=== PATIENT | male | born 1985 | race Caucasian/White ===

== ENCOUNTER 2020-09-03 08:56 | Observation (INO) ==
[2020-09-03] MEDS ORDERED: ONDANSETRON INJ 2 MG/ML 2 ML VIAL IV STA (09:32)
[2020-09-03] MEDS ORDERED: SODIUM CHLORIDE 0.9% 1000ML 1,000 ML IV STA (09:32)
[2020-09-03] MEDS ORDERED: MoRPHine SULFATE 4 MG/ML 1 ML CARP\\VIAL IV STA ×2 (09:32→12:12)
--- NOTE | 2020-09-03 09:39 | Emergency Department Note ---
History of Present Illness General Chief complaint: Abdominal Pain Stated complaint: UPPER ABD PAIN,COVID + ON 08/31 Time Seen by Provider: 09/03/20 09:12 History of Present Illness Maximum Pain Intensity: 7 35-year-old male who presents to the emergency department for evaluation of severe upper abdominal pain that started yesterday, and has progressively worsened. The patient reports that the pain comes in waves. He denies any pain extending into the chest or back. He denies shortness of breath or worsening pain with ambulation or deep breathing. The patient reports that he did test positive for COVID-19 on Monday. The patient did have some mild sinus congestion prior to testing, and reports that his son and also had similar symptoms, prompting COVID-19 testing. The patient reports a mild nonproductive cough. He denies any loss of taste/smell, myalgias, fevers or chills. He has had a mild sinus congestion and sore throat as well. The patient denies any prior history of GI conditions. The patient does not drink alcohol, and denies prior history of pancreatitis, hepatitis or gallbladder issues. He has not noticed any change in color or consistency of stools, and also denies any urinary symptoms. The patient rates his discomfort a 7 out of 10. Home Medications Medication Instructions Recorded Confirmed Type No Known Home Medications 09/03/20 09/03/20 History Allergies Allergy/AdvReac Type Severity Reaction Status Date / Time No Known Allergies Allergy Unverified 09/03/20 10:14 Past Med/Surg History Medical History No significant past medical history Surgical History No significant past surgical history Social History Smoking Status: Never smoker Preferred Language: Lao marital status: Current Living Situation: Spouse and Family current occupational status: employed Feels Safe at Home: Yes Review of Systems 10 system review was performed and was negative except for pertinent positives and negatives as indicated in history of present illness Physical Exam Vital Signs Vital Signs - 24 hr 09/03/20 09:01 09/03/20 11:15 09/03/20 13:15 Temperature 37.1 C Temperature Source Temporal Artery Scan Pulse Rate 90 Pulse Rate [Left Finger] 88 85 Pulse Rate from SpO2 Sensor Pulse Rhythm [Left Finger] Regular Regular Pulse Strength [Left Finger] Normal Normal Respiratory Rate 18 20 20 Respiratory Effort / Characteristics Non-Labored Spontaneous Non-Labored Non-Labored Respiratory Depth Normal Normal Normal Respiratory Pattern Regular Regular Regular Blood Pressure 136/90 Blood Pressure [Left Arm] 130/85 132/87 Blood Pressure Mean 105 Blood Pressure Mean [Left Arm] 100 102 Blood Pressure Position Sitting Blood Pressure Position [Left Arm] Sitting Pulse Oximetry 95 98 98 Oxygen Delivery Method Room Air Room Air Room Air Sepsis Recent Fever Within 48 Hours No Sepsis New/Unexplained Change in Mental Status N/A Sepsis Action Taken by Nursing No Action Required 09/03/20 14:28 09/03/20 15:00 09/03/20 16:56 Temperature Temperature Source Pulse Rate 84 85 97 H Pulse Rate [Left Finger] Pulse Rate from SpO2 Sensor 84 83 94 H Pulse Rhythm [Left Finger] Pulse Strength [Left Finger] Respiratory Rate 19 17 14 Respiratory Effort / Characteristics Respiratory Depth Respiratory Pattern Blood Pressure 117/80 130/77 Blood Pressure [Left Arm] Blood Pressure Mean 92 94 Blood Pressure Mean [Left Arm] Blood Pressure Position Blood Pressure Position [Left Arm] Pulse Oximetry 95 95 95 Oxygen Delivery Method Sepsis Recent Fever Within 48 Hours Sepsis New/Unexplained Change in Mental Status Sepsis Action Taken by Nursing 09/03/20 17:00 Temperature Temperature Source Pulse Rate 94 H Pulse Rate [Left Finger] Pulse Rate from SpO2 Sensor 94 H Pulse Rhythm [Left Finger] Pulse Strength [Left Finger] Respiratory Rate 21 Respiratory Effort / Characteristics Respiratory Depth Respiratory Pattern Blood Pressure 136/75 Blood Pressure [Left Arm] Blood Pressure Mean 95 Blood Pressure Mean [Left Arm] Blood Pressure Position Blood Pressure Position [Left Arm] Pulse Oximetry 96 Oxygen Delivery Method Sepsis Recent Fever Within 48 Hours Sepsis New/Unexplained Change in Mental Status Sepsis Action Taken by Nursing CONSTITUTIONAL: Healthy and well nourished. Patient appears in moderate disco mfort from pain. He does not appear toxic. HEENT: Normocephalic, atraumatic. Pupils equal, round and reactive. Ears and nares are clear without rhinorrhea, subconjunctival hemorrhage, scleral icterus or conjunctival injection/pallor. Patient has minimal posterior pharyngeal erythema without tonsillar hypertrophy or exudates. NECK: Full active range of motion without discomfort. No nuchal rigidity, JVD or carotid bruits. LYMPHATICS: No cervical chain adenopathy. RESPIRATORY: Clear to auscultation bilaterally with no wheezing, crackles, rhonchi or stridor. Deep breathing does not worsen discomfort in the abdomen. CARDIOVASCULAR: Regular rate and rhythm with no murmurs, rubs or gallops. GASTROINTESTINAL: Bowel sounds present in all quadrants. Patient has notable epigastric and left upper quadrant tenderness to palpation. No obvious hepatosplenomegaly. Negative CVA tenderness. No abdominal rigidity, guarding or rebound. MUSCULOSKELETAL: Full range of motion of all joints without discomfort. INTEGUMENTARY: No rash or other significant dermatologic conditions noted. HEMATOLOGIC: No ecchymosis or petechiae. PSYCHIATRIC: Positive affect. NEUROLOGIC: No focal neurologic deficits noted. Course Course Patient history and physical exam were performed. Nurses notes were reviewed. Vital signs were reviewed and were grossly normal. IV access was established, and labs were drawn. The patient was hydrated with a liter normal saline, and administered IV morphine and Zofran for pain. Review of labs does not show any significant abnormalities except for a mild leukopenia without thrombocytopenia, left shift or bandemia. Coagulation studies, CMP and lipase were otherwise unremarkable. Urinalysis also is not consistent with infection. CT with IV contrast of the abdomen and pelvis is concerning for possible splenic peripheral cyst versus possibility of infarcted tissue. At this point, I did elect to order a serum lactate which came back normal. Findings were further discussed with Dr. Ordonez, ED attending physician, who recommended discussing the case further with the [facility] Hospitalist service. I did ask about possibly contacting the general surgeon, however he does not feel that this is a surgical condition. The case was then further discussed with the [facility] hospitalist service, who evaluated the patient and agrees with hospital observation. The patient did require 2 additional doses of IV morphine for persistent pain. Please see the hospitalist dictations for further treatment and final disposition. Administered Medications Acetaminophen (Acetaminophen 325 Mg Tab) 650 mg PO Q6H PRN PRN Reason: Pain or Fever Stop: 10/03/20 15:58 Last Admin: 09/03/20 17:07 Dose: 650 mg Documented by: [id number] Discontinued Medications Sodium Chloride (Nss 1000ml) 1,000 mls @ 999 mls/hr IV .Q1H1M STA Stop: 09/03/20 10:32 Last Infusion: 09/03/20 10:56 Dose: 0 mls/hr Documented by: [id number] Admin: 09/03/20 09:55 Dose: 999 mls/hr Documented by: [id number] Ioversol (Optiray 300 100ml) 89 ml IV ONCE ONE Stop: 09/03/20 10:40 Last Admin: 09/03/20 10:40 Dose: 89 ml Documented by: [id number] Morphine Sulfate (Morphine Sulfate 4 Mg/Ml 1 Ml Carp\Vial) 4 mg IV NOW STA Stop: 09/03/20 09:33 Last Admin: 09/03/20 09:55 Dose: 4 mg Documented by: [id number] Morphine Sulfate (Morphine Sulfate 4 Mg/Ml 1 Ml Carp\Vial) 4 mg IV NOW STA Stop: 09/03/20 12:13 Last Admin: 09/03/20 12:15 Dose: 4 mg Documented by: [id number] Morphine Sulfate (Morphine Sulfate 4 Mg/Ml 1 Ml Carp\Vial) Confirm Administered Dose 4 mg .ROUTE .STK-MED ONE Stop: 09/03/20 12:13 Last Admin: 09/03/20 12:15 Dose: Not Given Documented by: [id number] Ondansetron HCl (Ondansetron Inj 2 Mg/Ml 2 Ml Vial) 4 mg IV NOW STA Stop: 09/03/20 09:33 Last Admin: 09/03/20 09:55 Dose: 4 mg Documented by: [id number] Medical Decision Making Medical Records Attestation: I reviewed the patient's medical records. Home Medications Current Medication List: was personally reviewed by me Laboratory Data Attestation: I reviewed the patient's lab results. Result diagrams: 09/03/20 09:32 09/03/20 09:32 Lab Results 09/03/20 09/03/20 09/03/20 Range/Units 09:32 09:32 09:32 WBC 4.76 L (4.8-10.8) K/uL RBC 5.74 (4.7-6.1) M/uL Hgb 16.7 (14.0-18.0) g/dL Hct 48.2 (42-52) % MCV 84.0 (80-100) fL MCH 29.1 (25-34) pg MCHC 34.6 (32-36) g/dL RDW Std Deviation 40.8 (36.4-46.3) fL RDW Coeff of Danisha 13.3 (11.5-14.5) % Plt Count 216 (130-400) K/uL MPV 11.5 H (7.4-10.4) fL Immature Gran % (Auto) 0.2 % Neut % (Auto) 68.2 % Lymph % (Auto) 20.4 % Garrard % (Auto) 9.5 % Eos % (Auto) 1.5 % Baso % (Auto) 0.2 % Neut # (Auto) 3.25 (1.4-6.5) K/uL Lymph # (Auto) 0.97 L (1.2-3.4) K/uL Garrard # (Auto) 0.45 (0.11-0.59) K/uL Eos # (Auto) 0.07 (0-0.5) K/uL Baso # (Auto) 0.01 (0-0.2) K/uL Immature Gran # (Auto) 0.01 (0.00-0.02) K/uL PT 10.7 (9.0-12.0) Seconds INR 1.1 (0.9-1.1) APTT 26.9 (21.0-31.0) Seconds PTT Ratio 1.0 Sodium 140 (136-145) mmol/L Potassium 4.1 (3.5-5.1) mmol/L Chloride 109 H (98-107) mmol/L Carbon Dioxide 28 (21-32) mmol/L Anion Gap 3.0 (3-11) BUN 11 (7-18) mg/dl Creatinine 0.95 (0.6-1.4) mg/dl Est Cr Clr Drug Dosing 122.9 ml/min Est GFR ( Amer) 120.6 Est GFR (Non-Af Amer) 104.0 BUN/Creatinine Ratio 11.6 (10-20) Glucose 96 (70-99) mg/dl Lactate (0.4-2.0) mmol/L Calcium 9.5 (8.5-10.1) mg/dl Total Bilirubin 0.4 (0.2-1) mg/dl AST 18 (15-37) U/L ALT 42 (12-78) U/L Alkaline Phosphatase 82 (45-117) U/L Total Protein 7.5 (6.4-8.2) gm/dl Albumin 3.9 (3.4-5.0) gm/dl Globulin 3.6 (2.5-4.0) gm/dl Albumin/Globulin Ratio 1.1 (0.9-2) Lipase 298 (73-393) U/L Urine Color Urine Appearance (Clear) Urine pH (4.5-7.5) Ur Specific [place] (1.000-1.030) Urine Protein (Negative) Urine Glucose (UA) (Negative) Urine Ketones (Negative) Urine Blood (Negative) Urine Nitrite (Negative) Urine Bilirubin (Negative) Urine Urobilinogen (Negative) Ur Leukocyte Esterase (Negative) COVID-19 Eval Order SARS-CoV-2 (PCR) (Negative) Influenza Type A (PCR) (Neg) Influenza Type B (PCR) (Neg) RSV (RT-PCR) (Neg) 09/03/20 09/03/20 09/03/20 Range/Units 11:16 12:16 14:30 WBC (4.8-10.8) K/uL RBC (4.7-6.1) M/uL Hgb (14.0-18.0) g/dL Hct (42-52) % MCV (80-100) fL MCH (25-34) pg MCHC (32-36) g/dL RDW Std Deviation (36.4-46.3) fL RDW Coeff of Danisha (11.5-14.5) % Plt Count (130-400) K/uL MPV (7.4-10.4) fL Immature Gran % (Auto) % Neut % (Auto) % Lymph % (Auto) % Garrard % (Auto) % Eos % (Auto) % Baso % (Auto) % Neut # (Auto) (1.4-6.5) K/uL Lymph # (Auto) (1.2-3.4) K/uL Garrard # (Auto) (0.11-0.59) K/uL Eos # (Auto) (0-0.5) K/uL Baso # (Auto) (0-0.2) K/uL Immature Gran # (Auto) (0.00-0.02) K/uL PT (9.0-12.0) Seconds INR (0.9-1.1) APTT (21.0-31.0) Seconds PTT Ratio Sodium (136-145) mmol/L Potassium (3.5-5.1) mmol/L Chloride (98-107) mmol/L Carbon Dioxide (21-32) mmol/L Anion Gap (3-11) BUN (7-18) mg/dl Creatinine (0.6-1.4) mg/dl Est Cr Clr Drug Dosing ml/min Est GFR ( Amer) Est GFR (Non-Af Amer) BUN/Creatinine Ratio (10-20) Glucose (70-99) mg/dl Lactate 0.7 (0.4-2.0) mmol/L Calcium (8.5-10.1) mg/dl Total Bilirubin (0.2-1) mg/dl AST (15-37) U/L ALT (12-78) U/L Alkaline Phosphatase (45-117) U/L Total Protein (6.4-8.2) gm/dl Albumin (3.4-5.0) gm/dl Globulin (2.5-4.0) gm/dl Albumin/Globulin Ratio (0.9-2) Lipase (73-393) U/L Urine Color Yellow Urine Appearance Clear (Clear) Urine pH 5.0 (4.5-7.5) Ur Specific [place] > 1.045 H (1.000-1.030) Urine Protein Negative (Negative) Urine Glucose (UA) Negative (Negative) Urine Ketones Negative (Negative) Urine Blood Negative (Negative) Urine Nitrite Negative (Negative) Urine Bilirubin Negative (Negative) Urine Urobilinogen Negative (Negative) Ur Leukocyte Esterase Negative (Negative) COVID-19 Eval Order [facility]FluRsv at [facility] SARS-CoV-2 (PCR) (Negative) Influenza Type A (PCR) (Neg) Influenza Type B (PCR) (Neg) RSV (RT-PCR) (Neg) 09/03/20 Range/Units 14:30 WBC (4.8-10.8) K/uL RBC (4.7-6.1) M/uL Hgb (14.0-18.0) g/dL Hct (42-52) % MCV (80-100) fL MCH (25-34) pg MCHC (32-36) g/dL RDW Std Deviation (36.4-46.3) fL RDW Coeff of Danisha (11.5-14.5) % Plt Count (130-400) K/uL MPV (7.4-10.4) fL Immature Gran % (Auto) % Neut % (Auto) % Lymph % (Auto) % Garrard % (Auto) % Eos % (Auto) % Baso % (Auto) % Neut # (Auto) (1.4-6.5) K/uL Lymph # (Auto) (1.2-3.4) K/uL Garrard # (Auto) (0.11-0.59) K/uL Eos # (Auto) (0-0.5) K/uL Baso # (Auto) (0-0.2) K/uL Immature Gran # (Auto) (0.00-0.02) K/uL PT (9.0-12.0) Seconds INR (0.9-1.1) APTT (21.0-31.0) Seconds PTT Ratio Sodium (136-145) mmol/L Potassium (3.5-5.1) mmol/L Chloride (98-107) mmol/L Carbon Dioxide (21-32) mmol/L Anion Gap (3-11) BUN (7-18) mg/dl Creatinine (0.6-1.4) mg/dl Est Cr Clr Drug Dosing ml/min Est GFR ( Amer) Est GFR (Non-Af Amer) BUN/Creatinine Ratio (10-20) Glucose (70-99) mg/dl Lactate (0.4-2.0) mmol/L Calcium (8.5-10.1) mg/dl Total Bilirubin (0.2-1) mg/dl AST (15-37) U/L ALT (12-78) U/L Alkaline Phosphatase (45-117) U/L Total Protein (6.4-8.2) gm/dl Albumin (3.4-5.0) gm/dl Globulin (2.5-4.0) gm/dl Albumin/Globulin Ratio (0.9-2) Lipase (73-393) U/L Urine Color Urine Appearance (Clear) Urine pH (4.5-7.5) Ur Specific [place] (1.000-1.030) Urine Protein (Negative) Urine Glucose (UA) (Negative) Urine Ketones (Negative) Urine Blood (Negative) Urine Nitrite (Negative) Urine Bilirubin (Negative) Urine Urobilinogen (Negative) Ur Leukocyte Esterase (Negative) COVID-19 Eval Order SARS-CoV-2 (PCR) POSITIVE A* (Negative) Influenza Type A (PCR) Negative (Neg) Influenza Type B (PCR) Negative (Neg) RSV (RT-PCR) Negative (Neg) Imaging Data Attestation: I personally reviewed and interpreted this imaging study as follows: My Impression: My interpretation of a CT with IV contrast of the abdomen and pelvis does not show any evidence for obstruction, diverticulitis, appendicitis or abdominal free air. Radiologist does make mention of peripheral hypodense foci within the spleen, representing possible small exophytic cysts, and with less likelihood, possible small peripheral infarcts. Radiologist report was also reviewed. Radiologist's Impression: Abdomen/Pelvis CT 09/03/20 09:[address] WITH IV CONTRAST CT DOSE: 718.05 mGycm HISTORY: Epigastric/left upper quadrant abd pain, COVID-19 TECHNIQUE: Multiaxial CT images of the abdomen and pelvis were performed following the use of intravenous contrast. A dose lowering technique was utilized adhering to the principles of ALARA. COMPARISON STUDY: None. FINDINGS: Mild dependent changes seen within the lung bases posteriorly. No focal lung consolidations to suggest pneumonia. No pneumoperitoneum. No pneumatosis. No fractures within the visualized osseous structures. The liver, gallbladder, pancreas, adrenal glands, and kidneys are unremarkable. No hydr onephrosis. Normal caliber abdominal aorta. The main portal vein is patent. No retroperitoneal lymphadenopathy. Small peripheral hypodense foci are seen within the spleen. These appear to represent small exophytic cysts. Dominant lesion within the spleen on image 87 measures 9 mm. Small peripheral infarcts are considered less likely but would also be considered in the differential diagnosis. The splenic vein and artery are patent. Normal bladder. No pelvic free fluid. No bowel wall thickening or obstruction. Normal appendix. IMPRESSION: 1. No bowel wall thickening or obstruction. 2. Normal appendix. 3. No hydronephrosis. 4. Small peripheral hypodense foci are seen within the spleen. These appear to represent small exophytic cysts. Dominant lesion measures 9 mm. Small peripheral infarcts are considered less likely but would also be considered in the differential diagnosis. ACT 112: Negative or not required by law. Electronically signed by: Billy Resendiz M.D. 09/03/2020 11:00 AM Chest X-Ray 04/29/21 14:25 XR chest 1V portable CLINICAL HISTORY: Shortness of breath. COMPARISON STUDY: No previous studies for comparison. FINDINGS: Lung volumes are normal. Lungs are clear. There is no pneumothorax or pleural effusion. Cardiac size is normal. Mediastinal contours are normal. There is no evidence for pulmonary edema. IMPRESSION: No acute cardiopulmonary findings. ACT 112: Negative or not required by law. Electronically signed by: Tomy Cooley M.D. 09/03/2020 2:50 PM Blood Pressure Blood Pressure Findings: Normal blood pressure MDM Narrative Patient presents emergency department with complaint of severe upper abdominal pain that comes in waves. Work-up today is concerning for possible splenic infarct versus small exophytic cyst. The patient did recently test positive on 08/31/2020 for COVID-19 infection. It is unknown of the clinical significance of his current infection and CT findings. Gastroenterology service may need to be involved with this case as well for further work-up. At this point, I do not suspect surgical services will be needed unless the patient's condition further declines, or has other worsening findings on further imaging. Other differentials considered included acute gastritis, peptic ulcer disease, GERD, bowel spasm or dysmotility. CT imaging does not show evidence for bowel obstruction, diverticulitis, appendicitis, abdominal free air, pancreatitis, hepatitis or obvious obstructive uropathy. Impression & Plan Acute upper abdominal pain, SARS-CoV-2 positive Discharge Plan Visit Data Chief Complaint: Abdominal Pain Stated Complaint: UPPER ABD PAIN,COVID + ON 08/31 ED Provider: Farzad Ordonez ED Midlevel Provider: Juan Diego Leigh Discharge Problem: Acute upper abdominal pain, SARS-CoV-2 positive Patient Disposition: Admitted As Inpatient Discharge Instructions Interventions: ED Discharge Assessment Last Done: 09/03/20 17:21 Forms Stand Alone Forms: [employer] Prescriptions Prescriptions: No Action No Known Home Medications RF: 0 Referrals Referrals: PCP,NO [Primary Care Provider] -
[2020-09-03 10:09] LABS: Basophils # (auto) 0.01 K/uL (0-0.2); Basophils % (auto) 0.2 %; Eosinophils # (auto) 0.07 K/uL (0-0.5); Eosinophils % (auto) 1.5 %; Hematocrit (blood only) 48.2 % (42-52); Hemoglobin 16.7 g/dL (14.0-18.0); Immature Granulocytes # (auto) 0.01 K/uL (0.00-0.02); Immature Granulocytes % (auto) 0.2 %; Lymphocytes # (auto) 0.97 K/uL (1.2-3.4); Lymphocytes % (auto) 20.4 %; Mean Corpuscular Hemoglobin 29.1 pg (25-34); Mean Corpuscular Hgb Conc 34.6 g/dL (32-36); Mean Platelet Volume 11.5 fL (7.4-10.4); Monocytes # (auto) 0.45 K/uL (0.11-0.59); Monocytes % (auto) 9.5 %; Neutrophils # (auto) 3.25 K/uL (1.4-6.5); Neutrophils % (auto) 68.2 %; Platelet Count 216 K/uL (130-400); RDW Coefficient of Variation 13.3 % (11.5-14.5); RDW Standard Deviation 40.8 fL (36.4-46.3); Red Blood Count 5.74 M/uL (4.7-6.1); White Blood Count 4.76 K/uL (4.8-10.8)
[2020-09-03 10:29] LABS: Albumin Level 3.9 gm/dl (3.4-5.0); BUN Creatinine Ratio 11.6 (10-20); Calcium 9.5 mg/dl (8.5-10.1); Creatinine Clr Calc Pharmacy 122.9 ml/min; Est GFR (African American) 120.6; Potassium 4.1 mmol/L (3.5-5.1)
[2020-09-03 10:32] LABS: Albumin Globulin Ratio 1.1 (0.9-2); Bilirubin,Total 0.4 mg/dl (0.2-1); Globulin 3.6 gm/dl (2.5-4.0); Total Protein 7.5 gm/dl (6.4-8.2)
[2020-09-03] MEDS ORDERED: OPTIRAY 300 100mL IV ONE (10:39)
--- NOTE | 2020-09-03 11:02 | CT Scan Report ---
ABDOMEN AND PELVIS CT WITH IV CONTRAST CT DOSE: 718.05 mGycm HISTORY: Epigastric/left upper quadrant abd pain, COVID-19 TECHNIQUE: Multiaxial CT images of the abdomen and pelvis were performed following the use of intrave nous contrast. A dose lowering technique was utilized adhering to the principles of ALARA. COMPARISON STUDY: None. FINDINGS: Mild dependent changes seen within the lung bases posteriorly. No focal lung consolidations to suggest pneumonia. No pneumoperitoneum. No pneumatosis. No fractures within the visualized osseou s structures. The liver, gallbladder, pancreas, adrenal glands, and kidneys are unremarkable. No hydr onephrosis. Normal caliber abdominal aorta. The main portal vein is patent. No retroperitoneal lympha denopathy. Small peripheral hypodense foci are seen within the spleen. These appear to represent smal l exophytic cysts. Dominant lesion within the spleen on image 87 measures 9 mm. Small peripheral infa rcts are considered less likely but would also be considered in the differential diagnosis. The splen ic vein and artery are patent. Normal bladder. No pelvic free fluid. No bowel wall thickening or obst ruction. Normal appendix. IMPRESSION: 1. No bowel wall thickening or obstruction. 2. Normal appendix. 3. No hydronephrosis. 4. Small peripheral hypodense foci are seen within the spleen. These appear to represent small exophy tic cysts. Dominant lesion measures 9 mm. Small peripheral infarcts are considered less likely but wo uld also be considered in the differential diagnosis. ACT 112: Negative or not required by law. Electronically signed by: Billy Resendiz M.D. 09/03/2020 11:00 AM
[2020-09-03 11:26] LABS: Appearance Urine Clear (Clear); Bilirubin Urine Negative (Negative); Blood Urine Negative (Negative); Color Urine Yellow; Glucose Urine UA Negative (Negative); Ketones Urine Negative (Negative); Leukocyte Esterase Urine Negative (Negative); Nitrite Urine Negative (Negative); Protein Urine Negative (Negative); Specific Gravity Urine > 1.045 (1.000-1.030); Urobilinogen Urine Negative (Negative)
[2020-09-03] MEDS ORDERED: MoRPHine SULFATE 4 MG/ML 1 ML CARP\\VIAL ONE (12:12)
[2020-09-03 14:05] LABS: INR 1.1 (0.9-1.1); Partial Thromboplastin Time 26.9 Seconds (21.0-31.0); Prothrombin Time 10.7 Seconds (9.0-12.0)
--- NOTE | 2020-09-03 14:51 | XRay Report ---
XR chest 1V portable CLINICAL HISTORY: Shortness of breath. COMPARISON STUDY: No previous studies for comparison. FINDINGS: Lung volumes are normal. Lungs are clear. There is no pneumothorax or pleural effusion. Car diac size is normal. Mediastinal contours are normal. There is no evidence for pulmonary edema. IMPRESSION: No acute cardiopulmonary findings. ACT 112: Negative or not required by law. Electronically signed by: Tomy Cooley M.D. 09/03/2020 2:50 PM
--- NOTE | 2020-09-03 14:55 | History & Physical Report ---
Date of Service September 03, 2020 Assessment & Plan (1) Abdominal pain: Mr. Quinn is a 35 year old male without chronic medical conditions who presented to [facility] ER today complaining of severe upper abdominal pain which started yesterday, and has progressively worsened since that time. Patient's pain is described as "sharp and shoots across" his upper abdomen, it comes in waves that last for 2 to 3 seconds. He denies any associated nausea, vomiting, diaphoresis, or diarrhea. He denies any radiation of the pain. No radiation of the pain into his chest, back, flank, or pelvis. He feels hungry and eating does not worsen his pain. He tried TUMS which may have helped. He denies any melena or hematochezia. The patient rates his discomfort a 7-8/10 when it is present. The patient denies any prior history of GI conditions, gastritis, or inflammatory bowel disease. He does not drink alcohol. Patient denies prior history of pancreatitis, hepatitis, gallbladder issues, or spleen abnormalities. CT Scan of his abdomen and pelvis today shows the followin. No bowel wall thickening or obstruction. 2. Normal appendix. 3. No hydronephrosis. 4. Small peripheral hypodense foci are seen within the spleen. These appear to represent small exophytic cysts. Dominant lesion measures 9 mm. Small peripheral infarcts are considered less likely but would also be considered in the differential diagnosis. Etiology of his abdominal pain is not certain -- differential includes gastrit is, gall bladder disease, PUD, pancreatitis, hepatitis, symptom of SARS Co-V 2 infection, splenic abscess, or splenic infarct (based on abn CT scan). Recommend the following: -- Admit to Med-Surg on Observational Status. -- COVID precautions/isolation/droplet precautions. -- PPI for GI protection. -- Trial of an anti-spasmodic. -- Consult Gastroenterology. -- IVF's. -- NPO except medications for the time being. -- Check inflammatory markers. (2) Abnormal abdominal CT scan: CT Scan Abdomen/Pelvis 09/03/20 shows small peripheral hypodense foci within the spleen. These appear to represent small exophytic cysts. Dominant lesion measures 9 mm. Small peripheral infarcts are considered less likely but would also be considered in the differential diagnosis. -- Consult Gastroenterology. -- Management as outlined above. (3) SARS-CoV-2 positive: -- Patient tested positive on 08/31/20. -- No evidence of pneumonia on CXR. -- Symptoms have been mild including sore throat, sinus congestion and a mild nonproductive cough. -- He denies any loss of taste or smell, myalgias, fevers, or chills. -- Mild lymphopenia on CBC with diff. -- O2 saturations are normal on room air, no evidence of pneumonia on exam or CXR. -- Supportive care. History of Present Illness Chief Complaint: -- Severe Upper Abdominal Pain. -- SARS CoV 2 positive. -- Splenic Cysts vs Infarcts on CT Scan. Primary Care Provider: NO PCP Mr. Quinn is a 35 year old male without chronic medical conditions who presented to [facility] ER today complaining of severe upper abdominal pain which started yesterday, and has progressively worsened since that time. The patient states that his pain is sharp and shoots across his upper abdomen, it comes in waves that last for 2 to 3 seconds. He denies any associated nausea, vomiting, diaphoresis, or diarrhea. He denies any radiation of the pain. No radiation of the pain into his chest, back, flank, or pelvis. He feels hungry and eating does not worsen his pain. He tried TUMS which may have helped. He denies any melena or hematochezia. Patient states that his son and also had similar symptoms, prompting COVID- 19 testing earlier this week on 08/31/20 -- patient tested positive. The patient admits to a mild nonproductive cough but he denies any loss of taste or smell, myalgias, fevers, or chills. He has had a mild sinus congestion and sore throat. The patient denies any prior history of GI conditions or inflammatory bowel disease. He does not drink alcohol. Patient denies prior history of pancreatitis, hepatitis, gallbladder issues, or spleen abnormalities. He has not noticed any change in color or consistency of stools, and also denies any urinary symptoms. he denies any dark urine. The patient rates his discomfort a 7-8/10 when it is present. Otherwise he admits to a mild headache, but denies any neurologic symptoms. Allergies Allergy/AdvReac Type Severity Reaction Status Date / Time No Known Allergies Allergy Unverified 09/03/20 10:14 Home Medications Medication Instructions Recorded Confirmed Type No Known Home Medications 09/03/20 09/03/20 History Past Med/Surg History Medical History No significant past medical history Surgical History No significant past surgical history Social History Smoking Status: Never smoker Hx Alcohol Use: No Hx Substance Use: No Preferred Language: Kazakh Communication Ability: Effective Drapery Installer Required: Voice Beliefs That Will Affect Care: None marital status: Current Living Situation: Family current occupational status: employed Other Information That Helps Us Care for You: No Feels Safe at Home: Yes Safety Concerns: Feels Safe At This Time Assistive Devices: None Review of Systems Review of Systems: All systems reviewed & are unremarkable except as noted in Subjective Physical Exam Physical Exam: VSS. GENERAL: Patient in no acute distress. HEENT: Head is atraumatic, normocephalic. EOM's intact. Sclerae are anicteric. Facies symmetric. No perioral cyanosis. NECK: No JVD. JVP is at the level of the clavicle sitting upright. Carotid upstrokes are + 2 bilaterally. No bruits are noted. CHEST/LUNGS: Clear to auscultation throughout all lung rivas. No wheezes, rales, or crackles. CVS: S1 and S2 are regular without murmurs, gallops, or rubs. PMI is nondisplaced. No lifts, heaves, or thrills. No abdominal aortic or renal bruits. ABDOMINAL EXAM: Bowel sounds are present. tender to palpation in the mid- epigastrium and LUQ. Spleen is not palpable. Liver edge not palpated. EXTREMITIES: No clubbing or cyanosis. No edema. Intact posterior tibial and radial pulses bilaterally. NEUROLOGIC EXAM: Patient is awake, alert, and oriented. Pleasant and cooperative. Answers questions appropriately. Speech is clear. Normal movement in all 4 extremities. Gait patternwas not assessed. Results & Data Results & Data ([facility]) Vital Signs (Past 12 Hours) Vital Signs Temp Pulse Pulse Resp BP BP Pulse Ox 09/03/20 14:28 84 19 117/80 95 09/03/20 13:15 85 20 132/87 98 09/03/20 11:15 88 20 130/85 98 09/03/20 09:01 37.1 C 90 18 136/90 95 Laboratory Results Laboratory Results - last 24 hr 09/03/20 09/03/20 09/03/20 09:32 09:32 09:32 WBC 4.76 L RBC 5.74 Hgb 16.7 Hct 48.2 MCV 84.0 MCH 29.1 MCHC 34.6 RDW Std Deviation 40.8 RDW Coeff of Danisha 13.3 Plt Count 216 MPV 11.5 H Immature Gran % (Auto) 0.2 Neut % (Auto) 68.2 Lymph % (Auto) 20.4 [place] % (Auto) 9.5 Eos % (Auto) 1.5 Baso % (Auto) 0.2 Neut # (Auto) 3.25 Lymph # (Auto) 0.97 L [place] # (Auto) 0.45 Eos # (Auto) 0.07 Baso # (Auto) 0.01 Immature Gran # (Auto) 0.01 PT 10.7 INR 1.1 APTT 26.9 PTT Ratio 1.0 Sodium 140 Potassium 4.1 Chloride 109 H Carbon Dioxide 28 Anion Gap 3.0 BUN 11 Creatinine 0.95 Est Cr Clr Drug Dosing 122.9 Est GFR ( Amer) 120.6 Est GFR (Non-Af Amer) 104.0 BUN/Creatinine Ratio 11.6 Glucose 96 Lactate Calcium 9.5 Total Bilirubin 0.4 AST 18 ALT 42 Alkaline Phosphatase 82 Total Protein 7.5 Albumin 3.9 Globulin 3.6 Albumin/Globulin Ratio 1.1 Lipase 298 Urine Color Urine Appearance Urine pH Ur Specific Brush Urine Protein Urine Glucose (UA) Urine Ketones Urine Blood Urine Nitrite Urine Bilirubin Urine Urobilinogen Ur Leukocyte Esterase COVID-19 Eval Order SARS-CoV-2 (PCR) Influenza Type A (PCR) Influenza Type B (PCR) RSV (RT-PCR) 09/03/20 09/03/20 09/03/20 11:16 12:16 14:30 WBC RBC Hgb Hct MCV MCH MCHC RDW Std Deviation RDW Coeff of Danisha Plt Count MPV Immature Gran % (Auto) Neut % (Auto) Lymph % (Auto) [place] % (Auto) Eos % (Auto) Baso % (Auto) Neut # (Auto) Lymph # (Auto) [place] # (Auto) Eos # (Auto) Baso # (Auto) Immature Gran # (Auto) PT INR APTT PTT Ratio Sodium Potassium Chloride Carbon Dioxide Anion Gap BUN Creatinine Est Cr Clr Drug Dosing Est GFR ( Amer) Est GFR (Non-Af Amer) BUN/Creatinine Ratio Glucose Lactate 0.7 Calcium Total Bilirubin AST ALT Alkaline Phosphatase Total Protein Albumin Globulin Albumin/Globulin Ratio Lipase Urine Color Yellow Urine Appearance Clear Urine pH 5.0 Ur Specific Brush > 1.045 H Urine Protein Negative Urine Glucose (UA) Negative Urine Ketones Negative Urine Blood Negative Urine Nitrite Negative Urine Bilirubin Negative Urine Urobilinogen Negative Ur Leukocyte Esterase Negative COVID-19 Eval Order CovFluRsv at [facility] SARS-CoV-2 (PCR) Influenza Type A (PCR) Influenza Type B (PCR) RSV (RT-PCR) 09/03/20 14:30 WBC RBC Hgb Hct MCV MCH MCHC RDW Std Deviation RDW Coeff of Danisha Plt Count MPV Immature Gran % (Auto) Neut % (Auto) Lymph % (Auto) [place] % (Auto) Eos % (Auto) Baso % (Auto) Neut # (Auto) Lymph # (Auto) [place] # (Auto) Eos # (Auto) Baso # (Auto) Immature Gran # (Auto) PT INR APTT PTT Ratio Sodium Potassium Chloride Carbon Dioxide Anion Gap BUN Creatinine Est Cr Clr Drug Dosing Est GFR ( Amer) Est GFR (Non-Af Amer) BUN/Creatinine Ratio Glucose Lactate Calcium Total Bilirubin AST ALT Alkaline Phosphatase Total Protein Albumin Globulin Albumin/Globulin Ratio Lipase Urine Color Urine Appearance Urine pH Ur Specific Brush Urine Protein Urine Glucose (UA) Urine Ketones Urine Blood Urine Nitrite Urine Bilirubin Urine Urobilinogen Ur Leukocyte Esterase COVID-19 Eval Order SARS-CoV-2 (PCR) Pending Influenza Type A (PCR) Pending Influenza Type B (PCR) Pending RSV (RT-PCR) Pending Diagnostic Findings CT SCAN ABDOMEN/PELVIS 09/03/20: Mild dependent changes seen within the lung bases posteriorly. No focal lung consolidations to suggest pneumonia. No pneumoperitoneum. No pneumatosis. No fractures within the visualized osseous structures. The liver, gallbladder, pancreas, adrenal glands, and kidneys are unremarkable. No hydronephrosis. Normal caliber abdominal aorta. The main portal vein is patent. No retroperitoneal lymphadenopathy. Small peripheral hypodense foci are seen within the spleen. These appear to represent small exophytic cysts. Dominant lesion within the spleen on image 87 measures 9 mm. Small peripheral infarcts are considered less likely but would also be considered in the differential diagnosis. The splenic vein and artery are patent. Normal bladder. No pelvic free fluid. No bowel wall thickening or obstruction. Normal appendix. IMPRESSION: 1. No bowel wall thickening or obstruction. 2. Normal appendix. 3. No hydronephrosis. 4. Small peripheral hypodense foci are seen within the spleen. These appear to represent small exophytic cysts. Dominant lesion measures 9 mm. Small peripheral infarcts are considered less likely but would also be considered in the differential diagnosis. CXR 09/03/20: -- Lung volumes are normal. Lungs are clear. -- There is no pneumothorax or pleural effusion. -- Cardiac size is normal. Mediastinal contours are normal. -- There is no evidence for pulmonary edema. IMPRESSION: -- No acute cardiopulmonary findings. Medications Administered Medications No Known Home Medications 09/03/20 [History Confirmed 09/03/20] Code Status & VTE Plan Code Status Full Code VTE Prophylaxis Plan VTE Prophylaxis will be ordered: Yes Supervising Physician Co-Signing Physician Notes I personally saw and examined the patient. I verified all suggs points and agree with Jayden Roper PA-C with the following exceptions and/or additions: 35 year old positive SARS-COV-2 although no significant PNA on exam or imaging presents to the ER with epigastric pain. Pain started yesterday. Somewhat relieved with tums but then cam back a lot worse. No Hx IBS. Cramping, sharp, lasts for seconds. O/E Chest CTAB, HS 1+2, RRR, no murmurs, Abdo moderate epigastric tenderness without rebound or guarding, BS +ve. A/P Abdominal pain - Lipase WNL. This appears to be most consistent with gastritis related to his recent large about of clementines. Will aggressively treat with Maalox Pepcid IV and pantoprazole. Can advance diet as tolerated. If not improved by AM consider GI consult. Splenic cysts - he does not have any pain over his spleen. I suspect this is an incidental finding and not related to his abdominal pain which appears to be more gastritis related. Will defer gastroenterology consult as long as pain is under control with Maalox, Pepcid and pantoprazole. Headache - suspect related to his back issues. Do not use Toradol (will make gastritis worse) or morphine (makes his headache worse). Use heating pad. PG Care Time/CCT Total # of Minutes Spent Total Time Spent with Patient: Total time spent is greater than 50% in coordination of care (as documented) at patient's floor/unit and/or counseling patient:36 Coding Level of Care Code 73130 OBS Care - Level 3 Diagnoses Abdominal pain R10.[address] scan R93.5 SARS-CoV-2 positive U07.1 Time Spent (min) 40
[2020-09-03 15:38] LABS: Influenza A virus by PCR Negative (Neg); Influenza B virus by PCR Negative (Neg); RSV by PCR Negative (Neg)
[2020-09-03 15:49] LABS: SARS CoV2 RNA(COVID-19) InHosp POSITIVE (Negative)
[2020-09-03] MEDS: ACETAMINOPHEN 325 MG TAB PO PRN (17:07)
[2020-09-03] MEDS ORDERED: MoRPHine SULFATE 4 MG/ML 1 ML CARP\\VIAL IV PRN (18:26)
[2020-09-03] MEDS ORDERED: ALUMINUM/MAGNESIUM/SIMETH (MAALOX MAX) 30 ML UDC PO PRN (18:26)
[2020-09-03] MEDS ORDERED: KETOROLAC TROMETHAMINE 15 MG/ML VIAL IV PRN (18:26)
[2020-09-03] MEDS ORDERED: ONDANSETRON INJ 2 MG/ML 2 ML VIAL IV PRN (18:26)
[2020-09-03] MEDS ORDERED: MAGNESIUM HYDROXIDE SUSP 30 ML UDC PO PRN (18:26)
[2020-09-03] MEDS: D5W AND NSS 1,000 ML IV SCH (19:00)
[2020-09-03] MEDS: DICYCLOMINE HCL 10 MG CAP PO SCH (20:39)
[2020-09-03] MEDS: PANTOprazole 40 MG TAB PO SCH (20:39)
[2020-09-03] MEDS ORDERED: FAMOTIDINE 20MG IV PUSH 20 MG/5 ML SYR IV STA (21:01)
[2020-09-03] MEDS ORDERED: ALUMINUM/MAGNESIUM SUSP 30 ML UDC PO STA (21:03)
[2020-09-04] MEDS: DICYCLOMINE HCL 10 MG CAP PO SCH ×2 (01:03→06:21)
[2020-09-04] MEDS: D5W AND NSS 1,000 ML IV SCH (03:11)
[2020-09-04] MEDS: ACETAMINOPHEN 325 MG TAB PO PRN ×2 (03:17→09:31)
[2020-09-04 06:01] LABS: Eosinophils # (auto) 0.01 K/uL (0-0.5); Eosinophils % (auto) 0.2 %; Hemoglobin 14.8 g/dL (14.0-18.0); Immature Granulocytes # (auto) 0.01 K/uL (0.00-0.02); Immature Granulocytes % (auto) 0.2 %; Lymphocytes # (auto) 1.22 K/uL (1.2-3.4); Lymphocytes % (auto) 24.6 %; Mean Corpuscular Hemoglobin 29.4 pg (25-34); Mean Corpuscular Hgb Conc 34.4 g/dL (32-36); Mean Corpuscular Volume 85.3 fL (80-100); Mean Platelet Volume 10.9 fL (7.4-10.4); Monocytes # (auto) 0.45 K/uL (0.11-0.59); Monocytes % (auto) 9.1 %; Neutrophils # (auto) 3.26 K/uL (1.4-6.5); Neutrophils % (auto) 65.9 %; Platelet Count 211 K/uL (130-400); RDW Coefficient of Variation 13.3 % (11.5-14.5); RDW Standard Deviation 41.9 fL (36.4-46.3); Red Blood Count 5.04 M/uL (4.7-6.1); White Blood Count 4.95 K/uL (4.8-10.8)
[2020-09-04 06:37] LABS: Albumin Level 3.4 gm/dl (3.4-5.0); BUN Creatinine Ratio 9.1 (10-20); Calcium 8.5 mg/dl (8.5-10.1); Creatinine Clr Calc Pharmacy 104.3 ml/min; Est GFR (African American) 98.8; Est GFR (Non-African American) 85.2
[2020-09-04 06:39] LABS: Bilirubin,Total 0.4 mg/dl (0.2-1); Globulin 3.3 gm/dl (2.5-4.0); Total Protein 6.7 gm/dl (6.4-8.2)
[2020-09-04] MEDS: PANTOprazole 40 MG TAB PO SCH (08:45)
[2020-09-04] MEDS ORDERED: SUCRALFATE 1 GM/10 ML UDC PO SCH (09:00)
--- NOTE | 2020-09-04 10:57 | Discharge Summary ---
Date of Service September 04, 2020 Admission HPI Per Admitting Provider Mr. Quinn is a 35 year old male without chronic medical conditions who presented to [facility] ER today complaining of severe upper abdominal pain which started yesterday, and has progressively worsened since that time. The patient states that his pain is sharp and shoots across his upper abdomen, it comes in waves that last for 2 to 3 seconds. He denies any associated nausea, vomiting, diaphoresis, or diarrhea. He denies any radiation of the pain. No radiation of the pain into his chest, back, flank, or pelvis. He feels hungry and eating does not worsen his pain. He tried TUMS which may have helped. He denies any melena or hematochezia. Patient states that his son and also had similar symptoms, prompting COVID- 19 testing earlier this week on 08/31/20 -- patient tested positive. The patient admits to a mild nonproductive cough but he denies any loss of taste or smell, myalgias, fevers, or chills. He has had a mild sinus congestion and sore throat. The patient denies any prior history of GI conditions or inflammatory bowel disease. He does not drink alcohol. Patient denies prior history of pancreatitis, hepatitis, gallbladder issues, or spleen abnormalities. He has not noticed any change in color or consistency of stools, and also denies any urinary symptoms. he denies any dark urine. The patient rates his discomfort a 7-8/10 when it is present. Otherwise he admits to a mild headache, but denies any neurologic symptoms. Principal Diagnosis Acute gastritis, incidental finding of small benign splenic cysts, COVID-19 positivity Discharge Data Allergies Allergy/AdvReac Type Severity Reaction Status Date / Time No Known Allergies Allergy Unverified 09/03/20 10:14 Consultations 09/03/20 14:45 ED Decision to Admit Stat Ordered Studies 09/03/20 09:32 CT abd pelvis IV con only Stat Hospital Course (1) Abdominal pain: The patient appears to have acute gastritis that has already improved with Protonix and the addition of Carafate. He will be discharged on Protonix 40 mg twice daily for 2 more weeks (2) Abnormal abdominal CT scan: Small benign splenic cysts are noted on CT scan. This can be followed up as an outpatient (3) SARS-CoV-2 positive: Minimally symptomatic at this time. He should self quarantine for 14 days from the original day of diagnosis which was on August 31 Total Time Total Time Spent Total Time Spent (In Minutes): 35 minutes Total Time Includes: Examination of the Patient, Discharge Planning and Medication Reconciliation Discharge Plan Discharge Items Reason For Visit: ABD PAIN COVID + Medications and DC Order Prescriptions: No Action No Known Home Medications RF: 0 Admission Data Admit Date/Time: 09/03/20 16:36 Attending Provider: Manuelito Robbins Admit Provider: Puma Sauer Primary Care Provider: PCP,NO Other Providers: Puma Sauer Coding Level of Care Code D/C Day Management >30 mins Diagnoses Abdominal pain R10.[address] scan R93.5 SARS-CoV-2 positive U07.1
== END 2020-09-04 11:57 | disposition home or self-care (01) ==
LOC: 3W 08:56 → ED 08:56 → SUATTDRO 16:36 → 3W 17:21